=== PATIENT | male | born 1960 | race Caucasian/White ===

== ENCOUNTER 2016-12-28 13:18 | Emergency (ER) | payer BC ==
[~2016-12-28 13:18] MED LIST: FEXO1TAB58 PO
[2016-12-28 13:26] VITALS: TEMP 36.9
[2016-12-28] MEDS ORDERED: OXYC-57 PO (14:09)
[2016-12-28 14:26] LABS: URINE APPEARANCE CLEAR (CLEAR); URINE BILIRUBIN NEG (NEG); URINE COLOR YELLOW; URINE NITRITE NEG (NEG); URINE SPECIFIC GRAVITY 1.019 (1.000-1.030); UROBILINOGEN NEG (NEG); ZZUR CULT IF INDIC CLEAN CATCH NO
[2016-12-28 14:31] LABS: MANUAL MICROSCOPIC REQUIRED? NO; REVIEW REQ? NO
[2016-12-28 14:50] LABS: BASO % 0.4 %; BASO ABS # 0.03 K/uL (0-0.2); COMPLETE YES; EOS % 1.1 %; HEMATOCRIT 42.8 % (42-52); IG% 0.3 %; LYMPH % 20.7 %; LYMPH ABS # 1.48 K/uL (1.2-3.4); MEAN CELL VOLUME 92.8 fL (80-100); MEAN CORPUSCULAR HGB CONC 33.4 g/dl (32-36); MEAN PLATELET VOLUME 9.2 fL (7.4-10.4); MONO % 7.3 %; NEUT % 70.2 %; PLATELET COUNT 236 K/uL (130-400); RED BLOOD COUNT 4.61 M/uL (4.7-6.1); WHITE BLOOD COUNT 7.15 K/uL (4.8-10.8)
[2016-12-28 15:16] LABS: BLOOD UREA NITROGEN 19 mg/dl (7-18); BUN/CREATININE RATIO 15.9 (10-20); CALCIUM 9.2 mg/dl (8.5-10.1); CARBON DIOXIDE 24 mmol/L (21-32); CHLORIDE 107 mmol/L (98-107); GLUCOSE 95 mg/dl (70-99); SODIUM 140 mmol/L (136-145)
[2016-12-28] MEDS ORDERED: SODIUM CHLORIDE 0.9% 1000ML 1,000 ML IV STA (15:59)
--- NOTE | 2016-12-28 16:49 | EMERGENCY ROOM VISIT NOTE ---
History Report prepared by Vianney: Meme Cortez Under the Supervision of: Dr. Haseeb Daley M.D. First contact with patient: 13:53 Chief Complaint: FLANK PAIN Stated Complaint: POSSIBLE INTERNAL BLEEDING- STOOL AND URINE History of Present Illness The patient is a 56 year old male who presents to the Emergency Room with complaints of an episode of hematuria this morning. 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 Three weeks ago, he fell through a trap door and broke 2 ribs on the right side. He had blood work, X-ray, and CT at that time which did not show kidney injury. For the past 2 days, he has noticed blood on the toilet paper upon wiping after bowel movements. He thought that it might be a hemorrhoid. He did not notice any blood in his stool. This morning, he noticed a "cobweb" of red blood in the toilet bowl after urinating. He is very concerned considering the recent trauma near his one kidney. He is still having pain in his right flank from the rib fractures. He currently rates his discomfort as a 1/10 in severity. The pain worsens when he bends over. Source of History: patient Onset: this morning Position: other (global) Quality: other (hematuria) Timing: other (episodic) Associated Symptoms: + back pain (right flank) Note: Pt reports blood when wiping after BM. Review of Systems See HPI for pertinent positives and negatives. A total of ten systems were reviewed and were otherwise negative. Past Medical & Surgical Medical Problems: (1) Kidney donor (2) Panic attack Family History No pertinent family history stated. Social History Smoking Status: Never Smoker Marital Status: Housing Status: lives with family Occupation Status: employed Current/Historical Medications Scheduled PRN Oxycodone/Acetaminophen 5MG/325MG (Percocet 5MG/325MG), 1 TABLET PO UD PRN for Pain Allergies Coded Allergies: Animal Dander (Verified Allergy, Severe, ITCHY EYES, SNEEZE, RUNNY NOSE, ) Physical Exam Vital Signs Date Time Temp Pulse Resp B/P (MAP) Pulse Ox O2 Delivery O2 Flow Rate FiO2 12/28/16 16:55 56 16 136/81 99 12/28/16 15:50 65 16 163/98 96 Room Air 12/28/16 14:57 62 16 146/87 97 Room Air 12/28/16 13:26 36.9 68 20 101/61 96 Room Air Physical Exam GENERAL: Awake, alert, well-appearing, in no distress HENT: Normocephalic, atraumatic. Oropharynx unremarkable. EYES: Normal conjunctiva. Sclera non-icteric. NECK: Supple. No nuchal rigidity. FROM. No JVD. RESPIRATORY: Clear to auscultation. CARDIAC: Regular rate, normal rhythm. Extremities warm and well perfused. Pulses equal. ABDOMEN: Soft, non-distended. No tenderness to palpation. No rebound or guarding. No masses. RECTAL: No external hemorrhoids. Brown stool guaiac positive. MUSCULOSKELETAL: Chest examination reveals no tenderness. The back is symmetrical on inspection without obvious abnormality. Mild right flank tenderness. No joint edema. LOWER EXTREMITIES: Calves are equal size bilaterally and non-tender. No edema. No discoloration. NEURO: Normal sensorium. No sensory or motor deficits noted. SKIN: No rash or jaundice noted. Medical Decision & Procedures Laboratory Results 12/28/16 14:30 Red Blood Count 4.61, Mean Corpuscular Volume 92.8, Mean Corpuscular Hemoglobin 31.0, Mean Corpuscular Hemoglobin Concent 33.4, Mean Platelet Volume 9.2, Neutrophils (%) (Auto) 70.2, Lymphocytes (%) (Auto) 20.7, Monocytes (%) (Auto) 7.3, Eosinophils (%) (Auto) 1.1, Basophils (%) (Auto) 0.4, Neutrophils # (Auto) 5.02, Lymphocytes # (Auto) 1.48, Monocytes # (Auto) 0.52, Eosinophils # (Auto) 0.08, Basophils # (Auto) 0.03 12/28/16 14:30 Test 12/28/16 14:00 12/28/16 14:30 Urine Color YELLOW Urine Appearance CLEAR (CLEAR) Urine pH 5.0 (4.5-7.5) Urine Specific [employer] 1.019 (1.000-1.030) Urine Protein NEG (NEG) Urine Glucose (UA) NEG (NEG) Urine Ketones NEG (NEG) Urine Occult Blood NEG (NEG) Urine Nitrite NEG (NEG) Urine Bilirubin NEG (NEG) Urine Urobilinogen NEG (NEG) Urine Leukocyte Esterase NEG (NEG) White Blood Count 7.15 K/uL (4.8-10.8) Red Blood Count 4.61 M/uL (4.7-6.1) Hemoglobin 14.3 g/dL (14.0-18.0) Hematocrit 42.8 % (42-52) Mean Corpuscular Volume 92.8 fL (80-100) Mean Corpuscular Hemoglobin 31.0 pg (25-34) Mean Corpuscular Hemoglobin Concent 33.4 g/dl (32-36) Platelet Count 236 K/uL (130-400) Mean Platelet Volume 9.2 fL (7.4-10.4) Neutrophils (%) (Auto) 70.2 % Lymphocytes (%) (Auto) 20.7 % Monocytes (%) (Auto) 7.3 % Eosinophils (%) (Auto) 1.1 % Basophils (%) (Auto) 0.4 % Neutrophils # (Auto) 5.02 K/uL (1.4-6.5) Lymphocytes # (Auto) 1.48 K/uL (1.2-3.4) Monocytes # (Auto) 0.52 K/uL (0.11-0.59) Eosinophils # (Auto) 0.08 K/uL (0-0.5) Basophils # (Auto) 0.03 K/uL (0-0.2) RDW Standard Deviation 49.5 fL (36.4-46.3) RDW Coefficient of Variation 14.5 % (11.5-14.5) Immature Granulocyte % (Auto) 0.3 % Immature Granulocyte # (Auto) 0.02 K/uL (0.00-0.02) Anion Gap 9.0 mmol/L (3-11) Estimated GFR () 78.4 Estimated GFR (Non- 67.7 BUN/Creatinine Ratio 15.9 (10-20) Calcium Level 9.2 mg/dl (8.5-10.1) Laboratory results reviewed by me Medications Administered Medications (Trade) Dose Ordered Sig/Lydia Route Start Time Stop Time Status Last Admin Dose Admin Sodium Chloride 1,000 ml @ 999 mls/hr Q1H1M STAT IV 12/28/16 15:59 12/28/16 16:59 DC 12/28/16 15:59 999 MLS/HR ED Course 1434: The patient was evaluated in room C10. A complete history and physical exam was performed. 1559: NSS 1000 ml @ 999 mls/hr IV. 1616: I reevaluated the patient. I discussed results and discharge instructions : he verbalized understanding and agreement. The patient is ready for discharge. Medical Decision I reviewed the patient's past medical history, medications, and the nursing notes as described above. Differential diagnosis: renal hematoma, kidney stone, lower GI bleed, UTI, pyelonephritis. Patient is a 56-year-old gentleman with a past medical history of a single kidney after providing his other kidney as a donation 's as well as a fall 3 weeks ago and diagnosed with rib fractures on the right presents to the emergency department with the question of hematuria or blood per rectum per history of present illness. Arrival the patient is in no acute distress, afebrile stable vital signs. He has mild right flank tenderness to palpation consistent with his known rib fractures. Otherwise patient's rectal exam had brown stool, guaiac positive. Labs unremarkable with CBC, h/h, Cr within normal limits. UA negative for blood. Considering normal renal function and no signs of hematuria, no indication for repeat imaging at this time. Findings and plan for follow-up d/w patient. Patient agreeable and d/c'd per discharge instructions. Medication Reconcilliation Current Medication List: was personally reviewed by me Blood Pressure Screening Patient's blood pressure: Normal blood pressure Blood pressure disposition: Did not require urgent referral Impression Primary Impression: Right flank pain Scribe Attestation The scribe's documentation has been prepared under my direction and personally reviewed by me in its entirety. I confirm that the note above accurately reflects all work, treatment, procedures, and medical decision making performed by me. Departure Information Dispostion Home / Self-Care Referrals No Doctor, Assigned (PCP) Patient Instructions Bleeding Rectal, My [facility] Additional Instructions Please follow up with your primary care physician in the next 1-3 days for re- evaluation. Your urine did not show any blood. Your rectal exam showed brown stool but did test positive for blood. Your flank pain is likely due to your known rib fractures which will take time to heal. Otherwise, your exam and lab results did not show signs of an emergent condition at this time. Return to the emergency department for worsening symptoms as described in the accompanying instructions.
[2016-12-28 16:55] VITALS: BP 136/81; PULSE 56; O2SAT 99
== END 2016-12-28 16:56 | disposition home or self-care (01) ==
LOC: C.EDB 13:20 → C.EDC 16:56
DX: R10.11 Right upper quadrant pain (principal); R10.31 Right lower quadrant pain; R19.5 Other fecal abnormalities; Z90.5 Acquired absence of kidney